=== PATIENT | male | born 1960 | race Caucasian/White ===

== ENCOUNTER 2019-10-14 01:31 | Day surgery (SDC) | payer MEDICARE, MEDICAID, SELFPAY ==
[2019-10-12 10:52] VITALS: BMI 24.3
--- NOTE | ~2019-10-14 | XR_ITS ---
XR fl guide central line place DATE: 10/14/2019 14:56 INDICATION: Port-A-Cath insertion TECHNIQUE: 2 spot C-arm images of the chest 36.2 seconds fluoroscopy time [id number] [id number] COMPARISON: 10/14/2019 portable AP chest FINDINGS: There is placement of a right internal jugular Port-A-Cath catheter with the catheter tip o verlying the mid to lower superior vena cava. No apparent pneumothorax. IMPRESSION: Right Port-A-Cath placement Reviewed, dictated and finalized at [facility]. Reviewed, dictated and finalized at [facility]. VENEER TAPER IMPRESSION: Right Port-A-Cath placement
--- NOTE | ~2019-10-14 | XR_ITS ---
XR chest port-a-cath/central DATE: 10/14/2019 11:32 INDICATION: Port-A-Cath insertion. Rectal mass. TECHNIQUE: Portable AP chest on 10/14/2019 at 1129 hours, 2 views COMPARISON: 08/29/2019 PA and lateral chest FINDINGS: Interval placement of a right internal jugular Port-A-Cath catheter, the tip of the cathete r overlying the mid to lower aspect of the superior vena cava. There is no evidence of pneumothorax o r pleural effusion. Abnormal opacity overlies the right upper lung, also noted on 08/29/2019. Consider CT thorax correlat ion and/or comparison with past chest radiographs. There are increased interstitial markings involving particularly the lower lung zones, likely due to chronic interstitial changes. Active interstitial pneumonitis is not excluded. Normal heart size. Aortic arch calcification. No hilar or mediastinal enlargement is evident. Included skeletal structures are unremarkable. IMPRESSION: Right internal jugular Port-A-Cath placement at superior vena cava; no evidence of pneumo thorax Reviewed, dictated and finalized at [facility]. Reviewed, dictated and finalized at [facility]. ING SUPERVISOR IMPRESSION: Right internal jugular Port-A-Cath placement at superior vena cava; no evidence of pneumothorax
--- NOTE | 2019-10-14 07:08 | PM.HPGS ---
History of Present Illness History of Present Illness Consent: Risks, benefits, and alternatives of placement of a Port-A-Cath have been discussed and questions answered. Patient agrees to proceed with procedure. Chief complaint: Rectal Ca Narrative: Huy Elizabeth is a 59 year old male with a history of COPD, left-sided pneumothorax, left-sided partial lung resection, and now newly discovered low rectal carcinoma. After discovery of this and confirmation with EUA and excisional biopsy patient has seen medical oncologist and radiation oncologist and is planning for a course of neoadjuvant chemotherapy with radiation. Because of this I have been asked to place a Port-A-Cath for him. See plan below. Review of Systems Constitutional: Constitutional: Reports no additional constitutional complaints, Reports fatigue and Denies malaise Eyes: Eyes: Denies change in vision and Denies loss of vision ENT: Reports hearing normal, Denies change in voice, Denies dizziness, Denies hoarseness and Denies sore throat Cardiovascular: Cardiovascular: Denies chest pain, Denies leg edema and Denies dyspnea Respiratory: Respiratory: Denies cough, Reports dyspnea ( Occasional with activity) and Reports wheezing ( occasional and uses inhaler.) Gastrointestinal: Gastrointestinal: Denies hematochezia, Denies change in bowel habits and Denies heartburn Genitourinary: Genitourinary: Denies urinary frequency and Denies urinary incontinence Neurologic: Reports Normal hearing present, Denies confusion, Denies dizziness, Denies loss of vision, Denies memory loss and Denies seizure-like activity Psychiatric: Psychiatric: Denies confusion, Denies depression and Denies memory loss Endocrine: Endocrine: Denies cold intolerance and Reports fatigue Hematologic/Lymphatic: Hematologic/Lymphatic: Denies easy bleeding and Denies easy bruising Allergic/Immunologic: Allergic/Immunologic: Denies wheezing [facility] Past Medical History Medical History (Updated 10/14/19 @ 07:13 by Jose Bustamante MD) COPD (chronic obstructive pulmonary disease) stage 4, home O2 Depression Hyperlipidemia On home O2 3-6 L/min per activity Osteoarthritis Rectal cancer Renal stones Social History Social History (Updated 09/02/19 @ 08:47 by Jesus Santamaria MD) Smoking status: Former smoker Alcohol intake: never Meds Home Medications and Allergies Home Medications Medication Instructions Recorded Confirmed Type atorvastatin [Lipitor] 10 mg PO HS 08/30/19 10/12/19 History Breo Ellipta 1 inh INHALATION DAILY 10/10/19 10/14/19 History Incruse Ellipta 1 inh INHALATION DAILY 10/10/19 10/14/19 History albuterol sulfate [ProAir HFA] 1 inh INHALATION BID PRN 10/10/19 10/12/19 History alprazolam 0.5 mg PO BID 10/10/19 10/14/19 History bupropion HCl 300 mg PO QAM 10/10/19 10/14/19 History mirtazapine 45 mg PO HS 10/10/19 10/14/19 History omeprazole 20 mg PO DAILY 10/10/19 10/14/19 History oxycodone-acetaminophen 1 tablet PO QID PRN 10/10/19 10/14/19 History potassium chloride 10 meq PO DAILY 10/10/19 10/14/19 History trazodone 25 mg PO HS 10/10/19 10/14/19 History Allergies Allergy/AdvReac Type Severity Reaction Status Date / Time niacin Allergy Intermediate Hives Verified 10/14/19 09:14 [From [facility] Extended-Release] Exam Const: General: cooperative, no acute distress, well developed and alert; No confused Nutritional Appearance: average body habitus Orientation/consciousness: oriented x3 and No confused Limitations: no limitations Other: Thin and with a barrel chest. HENMT: Head: normal to inspection, normocephalic and atraumatic Ears: hearing grossly normal bilaterally General nose exam: external nose normal Face and sinus: no edema Mouth: Yes oral mucosae normal and Yes lip normal Throat: posterior oropharynx normal Eyes: General: appearance normal, both eyes and all related structures Sclera: sclerae normal Pupils: PERRL EO
[2019-10-14 09:10] LABS: Basophils Absolute Auto 0.1 K/mm3 (0.0-0.1); Basophils Percent Auto 0.6 % (0.2-1.2); Eosinophils Absolute Auto 0.3 K/mm3 (0-0.3); Eosinophils Percent Auto 3.7 % (0-4.4); Hematocrit 39.4 % (42.0-52.0); Hemoglobin 12.6 g/dL (14.0-18.0); Immature Granulocyte Absolute 0.04 K/mm3 (0.00-0.031); Immature Granulocyte Percent A 0.5 % (0-0.5); Lymphocytes Absolute Auto 2.63 K/mm3 (0.9-3.2); Mean Corpuscular Hemoglobin 28.5 pg (26-34); Mean Corpuscular Volume 89.1 fl (80-100); Mean Platelet Volume 8.6 fl (7.4-10.4); Monocytes Absolute Auto 0.6 K/mm3 (0.1-0.6); Monocytes Percent Auto 7.7 % (2.6-8.5); Neutrophils Absolute Auto 4.6 K/mm3 (1.3-6.7); Neutrophils Percent Auto 55.5 % (45.5-73.1); Platelet Count Result 329 k/mm3 (150-375); Red Blood Count 4.42 M/mm3 (4.6-6.20); Red Cell Distribution Width 11.9 % (11.5-14.5); White Blood Count 8.2 K/mm3 (4.5-10.0)
[2019-10-14 09:18] VITALS: BP 142/86; PULSE 85; RESP 18; TEMP 36.9; O2SAT 94
[2019-10-14 09:20] LABS: Partial Thromboplastin Time 25.6 SECONDS (22.3-36.8); Prothrombin Time 12.6 Seconds (11.1-14.7)
[2019-10-14] MEDS: LACTATED RINGERS 1,000 ML 30 ML IV CONT (09:21)
--- NOTE | 2019-10-14 09:29 | WPDANESEPPF ---
Anes - Initial Pre Proc Eval Procedure: Operation Date: 10/14/19 10:00 Proposed Procedures p Insertion Port A Cath - Jose Bustamante MD Date/Time: 10/14/19 09:29 Surgeon: Jose Bustamante MD Pre Op Diagnosis: Rectal Ca Patient Data Age: 59 Gender: M Height: 6 ft Weight: 82.7 kg Last Vital Signs Temp 98.5 F 10/14/19 09:18 Pulse 85 10/14/19 09:18 Resp 18 10/14/19 09:18 BP 142/86 H 10/14/19 09:18 Pulse Ox 94 10/14/19 09:18 Allergies Allergy/AdvReac Type Severity Reaction Status Date / Time niacin Allergy Intermediate Hives Verified 10/14/19 09:14 [From Niaspan Extended-Release] Home Medications Medication Instructions Recorded Confirmed Type atorvastatin [Lipitor] 10 mg PO HS 08/30/19 10/12/19 History Breo Ellipta 1 inh INHALATION DAILY 10/10/19 10/14/19 History Incruse Ellipta 1 inh INHALATION DAILY 10/10/19 10/14/19 History albuterol sulfate [ProAir HFA] 1 inh INHALATION BID PRN 10/10/19 10/12/19 History alprazolam 0.5 mg PO BID 10/10/19 10/14/19 History bupropion HCl 300 mg PO QAM 10/10/19 10/14/19 History mirtazapine 45 mg PO HS 10/10/19 10/14/19 History omeprazole 20 mg PO DAILY 10/10/19 10/14/19 History oxycodone-acetaminophen 1 tablet PO QID PRN 10/10/19 10/14/19 History potassium chloride 10 meq PO DAILY 10/10/19 10/14/19 History trazodone 25 mg PO HS 10/10/19 10/14/19 History Laboratory Tests 10/14/19 10/14/19 09:01 09:01 WBC 8.2 K/mm3 K/mm3 (4.5-10.0) RBC 4.42 M/mm3 L M/mm3 (4.6-6.20) Hgb 12.6 g/dL L g/dL (14.0-18.0) Hct 39.4 % L % (42.0-52.0) MCV 89.1 fl fl (80-100) MCH 28.5 pg pg (26-34) MCHC 32.0 g/dl g/dl (32-36) RDW 11.9 % % (11.5-14.5) Plt Count 329 k/mm3 k/mm3 (150-375) MPV 8.6 fl fl (7.4-10.4) Immature Gran % (Auto) 0.5 % % (0-0.5) Neut % (Auto) 55.5 % % (45.5-73.1) Lymph % (Auto) 32.0 % % (18.3-44.2) Mayes % (Auto) 7.7 % % (2.6-8.5) Eos % (Auto) 3.7 % % (0-4.4) Baso % (Auto) 0.6 % % (0.2-1.2) Lymph # (Auto) 2.63 K/mm3 K/mm3 (0.9-3.2) Mayes # (Auto) 0.6 K/mm3 K/mm3 (0.1-0.6) Eos # (Auto) 0.3 K/mm3 K/mm3 (0-0.3) Baso # (Auto) 0.1 K/mm3 K/mm3 (0.0-0.1) Abs Immat Gran (auto) 0.04 K/mm3 H K/mm3 (0.00-0.031) Absolute Neuts (auto) 4.6 K/mm3 K/mm3 (1.3-6.7) Absolute Nucleated RBC 0.0 K/mm3 K/mm3 (0.0-0.012) Nucleated RBC % 0.0 % % (0.0-0.2) PT 12.6 Seconds Seconds (11.1-14.7) INR 1.0 APTT 25.6 SECONDS SECONDS (22.3-36.8) Patient hx anesthesia problems: none Family hx anesthesia problems: none [facility] Past Medical History Medical History (Updated 10/14/19 @ 07:13 by Jose Bustamante MD) COPD (chronic obstructive pulmonary disease) stage 4, home O2 Depression Hyperlipidemia On home O2 3-6 L/min per activity Osteoarthritis Rectal cancer Renal stones Social History Social History (Updated 09/02/19 @ 08:47 by Jesus Santamaria MD) Smoking status: Former smoker Alcohol intake: never Anes - Eval Final PreProcedure Day of Procedure 10/14/19 09:29 Patient weight: normal Heart: regular rate and rhythm Lungs: clear to auscultation Airway: Mallampati scale class III Neurological: alert and oriented Last oral intake: >/= 8 hours ASA classification: IV Emergent: no Anesthetic plan: proceed Anesthesia type and monitoring: general GIVS and standard monitoring Informed Consent: The patient's anesthetic plan and its attendant risks and benefits were discussed with the patient/family/POA. Questions were solicited and answers provided to the satisfaction of the patient/family/POA.
[2019-10-14] MEDS: ceFAZolin 2 GM/D5W 50 ML 2 GM/50 ML BAG IVPB (10:06)
[2019-10-14] MEDS: BUPIVACAINE/EPINEPHRINE 0.5% 30 ML VIAL INFILTRATE (10:45)
[2019-10-14] MEDS: HEPARIN SODIUM 5,000 UNITS/ML VIAL 5000 UNITS IRRIGATION (10:47)
[2019-10-14 11:19] VITALS: BP 127/80; PULSE 83; RESP 18; O2SAT 93
--- NOTE | 2019-10-14 11:21 | PM.PROC ---
Procedure Note - Detailed Date of procedure: 10/20/19 Pre-op diagnosis: Rectal Ca Poor peripheral vascular access recently discovered rectal cancer Post-op diagnosis: same Procedure performed: placement of Port-A-Cath Description of procedure: Patient was seen and marked in the pre-op area prior to coming to the OR. Patient was brought to the operating room. He was placed supine on the operating table and general IV sedation was induced. The nurse cattle producers provided oxygen and IV sedation. Patient's head was carefully turned to the left side while in the supine position and the patient's entire neck and anterior chest on both sides was prepped and draped in the usual sterile fashion. Following this the appropriate time-out was completed confirming procedure and patient. We confirmed that all the needed equipment was present in the room. Following this the ultrasound probe was draped into the field and using the probe we carefully identified the carotid artery and jugular vein on the right neck. I marked the skin directly over the Rt. internal jugular vein. Following this, using the continuous ultrasound guidance, a Cook needle was placed through the skin into this vein. I then was able to draw back good dark blood. Once this was completed a guidewire using a J-tip was advanced through the needle and then the needle and the guidewire cover were withdrawn. C-arm fluoroscopy was used to confirm that the guidewire was nicely in the venous system. Once this was confirmed with the C - arm I preceded on by making the pocket for the port on the patient's anterior right chest approximately 3 centimeters below the clavicle overlying the chest wall. Local anesthetic was infiltrated into the skin where there was a transverse incision marked out. Incision was made and we made a pocket inferior to the incision with just a little dissection superior. The Smart port was tried in the pocket and seemed to fit well. Following this the catheter which had been placed on a tunneling device was tunneled from the port site on the anterior right chest up to the right neck where a small incision had been made with an #11 blade knife. Then the catheter was pulled through so that we would have 15 centimeters to put into the central venous system once the dilation took place. Following this we placed the dilator and sheath over the guidewire in the jugular vein and carefully dilated the tract into the central venous system. The guidewire and dilator were then removed, carefully covering the end of the sheath to prevent air embolus. The end of the catheter which had been cut off straight across and the tip checked was then inserted into the sheath and into the neck. I then carefully pulled the 2 arms of the tear-away sheath away as the assistant softball coach held the catheter in position with a DeBakey forceps. Following this we checked the position of the catheter with C-arm fluoroscopy confirming that the tip seemed to be in the distal superior vena cava near the junction with the right atrium. I felt that it was in good position and so the rest of the catheter was pulled down toward the feet into the port site. We then measured to the appropriate position to cut the catheter to attach it to the port stem. Then the connector sealing device for the catheter port was placed onto the catheter and then the catheter cut to the appropriate length and inserted onto the stem of the port. Then the connector was advanced onto the stem over the catheter sealing it to the port. A single 3- 0 Prolene suture was also used during this to suture the connector to the port and to the underlying musculature. Following this at one other site the port was sutured to the underlying musculature with the 3-0 Proline. Both prior to connecting the catheter to the port and then using a straight Hill needle following this connection, the port was aspirated of good dark blood and flushed with heparinized saline to keep
[2019-10-14 11:45] VITALS: BP 145/86; PULSE 73; O2SAT 73
[2019-10-14 12:10] VITALS: BP 141/95; PULSE 70; O2SAT 70
== END 2019-10-14 12:14 | disposition home or self-care (01) ==
PROVIDERS: PCP Internal Medicine; Visit Provider Surgery
PROC: (CPT 36561; principal; 2019-10-14 10:00)
DX: C20 Malignant neoplasm of rectum (principal); J44.9 Chronic obstructive pulmonary disease, unspecified; E78.5 Hyperlipidemia, unspecified; M19.90 Unspecified osteoarthritis, unspecified site; F32.9 Major depressive disorder, single episode, unspecified; Z99.81 Dependence on supplemental oxygen; Z87.891 Personal history of nicotine dependence
CPT/HCPCS: 36561; 36415; 77001; 85025; 85610; 85730; C1788; J0690; J1644; J2250; J2704; J3010; J7030; J7120